=== PATIENT | female | born 1995 | race Caucasian/White ===

== ENCOUNTER 2018-06-26 23:45 | Emergency (ER) | payer MEDICAID, OTHER ==
[2018-06-27 00:12] VITALS: BP 112/65
--- NOTE | 2018-06-27 00:26 | EDM.PDOC ---
ED HPI GENERAL MEDICAL PROBLEM - General Source of Information: Reports: Patient, EMS History Limitations: Reports: No Limitations <Javy Brooks - Last Filed: 06/27/18 06:56> <Javy Pena - Last Filed: 06/27/18 10:20> - General Chief Complaint: Behavioral/Psych Stated Complaint: [facility] Time Seen by Provider: 06/27/18 00:20 - History of Present Illness INITIAL COMMENTS - FREE TEXT/NARRATIVE: This is a 23-year-old female. The ambulance was called to her residence because her boyfriend stated that she had taken alprazolam and buspirone and hydrocodone multiple pills because she wanted to kill herself. The patient states that yesterday wanted to kill herself and she is tried to do this twice in the last 2 months by taking Xanax. She was never seen for these previous 2 attempts. Tonight she states that she took this medication K she was fighting with her boyfriend. She says she's been having suicidal thoughts and her parents were killed when she was 16 years old. She will not tell me what she was fighting about. She's never been in treatment for the suicidal ideation and attempts. She denies any recent illnesses no colds no coughs. She is also drunk about 11 pierced tonight. (Javy Brooks) - Related Data Allergies Allergy/AdvReac Type Severity Reaction Status Date / Time erythromycin base Allergy Vomiting Verified 12/31/14 10:04 SURGICAL SUPPLIES STERILIZER Home Meds: Home Meds PNV95/Ferrous Fumarate/FA [ Tablet] 1 tab PO DAILY 12/31/14 [History] Acetaminophen/HYDROcodone [[place] 325-5 MG] 1 tab PO Q6H PRN #7 tablet 06/11/18 [ Rx] Divalproex Sodium [Depakote] 250 mg PO BID 06/11/18 [History] Past Medical History Psychiatric History: Reports: Bipolar - Past Surgical History HEENT Surgical History: Reports: Adenoidectomy, Tonsillectomy <Javy Brooks - Last Filed: 06/27/18 06:56> Social & Family History - Tobacco Use Smoking Status *Q: Never Smoker - Caffeine Use Caffeine Use: Reports: Coffee - Recreational Drug Use Recreational Drug Use: No <Javy Brooks - Last Filed: 06/27/18 06:56> ED ROS GENERAL - Review of Systems Review Of Systems: See Below Constitutional: Denies: Fever, Chills HEENT: Reports: No Symptoms Respiratory: Denies: Shortness of Breath Cardiovascular: Denies: Chest Pain Endocrine: Reports: No Symptoms GI/Abdominal: Reports: Nausea. Denies: Abdominal Pain, Diarrhea, Vomiting : Reports: No Symptoms Musculoskeletal: Reports: No Symptoms Skin: Reports: No Symptoms Neurological: Reports: Confusion Psychiatric: Reports: Depression, Suicidal Ideation Hematologic/Lymphatic: Reports: No Symptoms <Javy Brooks - Last Filed: 06/27/18 06:56> - Physical Exam Exam: See Below Exam Limited By: No Limitations General Appearance: Alert, WD/WN, No Apparent Distress, Lethargic. No: Obtunded Eye Exam: Bilateral Eye: Abnormal Pupil (Sluggish to react bilaterally but equal ), Normal Inspection Ears: Normal External Exam, Normal Canal, Normal TMs Nose: Normal Inspection Throat/Mouth: Normal Inspection, Normal Lips, No Airway Compromise, Other ( Slurred speech but understandable) Head Exam: Normocephalic Neck: Supple Respiratory/Chest: No Respiratory Distress, Lungs Clear, Normal Breath Sounds Cardiovascular: Regular Rate, Rhythm, No Murmur GI/Abdominal: Soft, Non-Tender Neuro Exam (Abbreviated): Alert, No Motor/Sensory Deficits, Confused, Slow to Respond. No: Unresponsive Back Exam: Full Range of Motion Extremities: Normal Inspection, Normal Range of Motion Psychiatric: Depressed Mood, Flat Affect, Tearful Skin Exam: Warm, Dry <Javy Brooks - Last Filed: 06/27/18 06:56> EKG INTERPRETATION EKG Date: 06/26/18 Time: 23:56 <Javy Brooks - Last Filed: 06/27/18 06:56> <Javy Pena - Last Filed: 06/27/18 10:20> EKG Interpretation Comments: Normal sinus rhythm rate of 82, a wavering baseline due to patient movement, no acute ST or T-wave changes, no acute ischemia noted. (Javy Brooks) Course <Javy Brooks - Last Filed: 06/27/18 06:56> <Javy Pena - Last Filed: 06/27/18 10:20> - Vital Signs Last Recorded V/S: Last Vital Signs Temp 98.2 F 06/27/18 00:09 Pulse 99 06/27/18 00:09 Resp 19 06/27/18 00:09 BP 112/65 06/27/18 00:09 Pulse Ox 96 06/27/18 00:09 - Orders/Labs/Meds Orders: Active Orders 24 hr Category Date Time Status EKG 12 Lead [EKG Documentation Completion] [RC] STAT Care 06/26/18 23:49 Active DRUG SCREEN, URINE [URCHEM] Stat Lab 06/27/18 00:18 Ordered DRUG SCREEN, URINE [URCHEM] Stat Lab 06/27/18 06:40 Ordered Labs: Laboratory Tests 06/26/18 06/26/18 06/26/18 Range/Units 23:50 23:50 23:50 WBC 6.30 (3.98-10.04) K/mm3 RBC 3.96 L (3.98-5.22) M/mm3 Hgb 12.2 (11.2-15.7) gm/L Hct 37.2 (34.1-44.9) % MCV 93.9 (79.4-94.8) fl MCH 30.8 (25.6-32.2) pg MCHC 32.8 (32.2-35.5) g/dl RDW Std Deviation 43.4 (36.4-46.3) fL Plt Count 235 (182-369) K/mm3 MPV 10.9 (9.4-12.3) fl Neut % (Auto) 43.8 (34.0-71.1) % Lymph % (Auto) 45.4 (19.3-51.7) % Donley % (Auto) 7.8 (4.7-12.5) % Eos % (Auto) 2.2 (0.7-5.8) Baso % (Auto) 0.6 (0.1-1.2) % Neut # (Auto) 2.76 (1.56-6.13) K/mm3 Lymph # (Auto) 2.86 (1.18-3.74) K/mm3 Donley # (Auto) 0.49 H (0.24-0.36) K/mm3 Eos # (Auto) 0.14 (0.04-0.36) K/mm3 Baso # (Auto) 0.04 (0.01-0.08) K/mm3 Sodium 140 (136-145) mEq/L Potassium 3.4 L (3.5-5.1) mEq/L Chloride 105 (98-107) mEq/L Carbon Dioxide 20 L (21-32) mEq/L Anion Gap 18.4 H (5-15) BUN 13 (7-18) mg/dL Creatinine 1.0 (0.55-1.02) mg/dL Est Cr Clr Drug Dosing 85.09 mL/min Estimated GFR (MDRD) > 60 (>60) mL/min BUN/Creatinine Ratio 13.0 L (14-18) Glucose 92 (74-106) mg/dL Calcium 8.1 L (8.5-10.1) mg/dL Total Bilirubin 0.2 (0.2-1.0) mg/dL AST 25 (15-37) U/L ALT 28 (14-59) U/L Alkaline Phosphatase 43 L (46-116) U/L Total Protein 7.3 (6.4-8.2) g/dl Albumin 3.4 (3.4-5.0) g/dl Globulin 3.9 gm/dL Albumin/Globulin Ratio 0.9 L (1-2) HCG, Qual Negative (NEGATIVE) Urine Color (Yellow) Urine Appearance (Clear) Urine pH (5.0-8.0) Ur Specific [place] (1.005-1.030) Urine Protein (Negative) Urine Glucose (UA) (Negative) Urine Ketones (Negative) Urine Occult Blood (Negative) Urine Nitrite (Negative) Urine Bilirubin (Negative) Urine Urobilinogen (0.2-1.0) Ur Leukocyte Esterase (Negative) Urine RBC (0-5) /hpf Urine WBC (0-5) /hpf Ur Epithelial Cells (0-5) /hpf Urine Bacteria (FEW) /hpf Urine Mucus (FEW) /hpf Salicylates (2.8-20) mg/dL Urine Opiates Screen (NEGATIVE) Ur Buprenorphine Scrn (NEGATIVE) Ur Oxycodone Screen (NEGATIVE) Urine Methadone Screen (NEGATIVE) Ur Propoxyphene Screen (NEGATIVE) Acetaminophen 0 L (10-30) ug/mL Ur Barbiturates Screen (NEGATIVE) Valproic Acid (50.0-100.0) ug/mL Ur Tricyclics Screen (NEGATIVE) Ur Phencyclidine Scrn (NEGATIVE) Ur Amphetamine Screen (NEGATIVE) U Methamphetamines Scrn (NEGATIVE) U Benzodiazepines Scrn (NEGATIVE) U Cocaine Metab Screen (NEGATIVE) U Marijuana (THC) Screen (NEGATIVE) Ethyl Alcohol 0.12 (0.00) gm% 06/26/18 06/26/18 06/26/18 Range/Units 23:50 23:50 23:53 WBC (3.98-10.04) K/mm3 RBC (3.98-5.22) M/mm3 Hgb (11.2-15.7) gm/L Hct (34.1-44.9) % MCV (79.4-94.8) fl MCH (25.6-32.2) pg MCHC (32.2-35.5) g/dl RDW Std Deviation (36.4-46.3) fL Plt Count (182-369) K/mm3 MPV (9.4-12.3) fl Neut % (Auto) (34.0-71.1) % Lymph % (Auto) (19.3-51.7) % Donley % (Auto) (4.7-12.5) % Eos % (Auto) (0.7-5.8) Baso % (Auto) (0.1-1.2) % Neut # (Auto) (1.56-6.13) K/mm3 Lymph # (Auto) (1.18-3.74) K/mm3 Donley # (Auto) (0.24-0.36) K/mm3 Eos # (Auto) (0.04-0.36) K/mm3 Baso # (Auto) (0.01-0.08) K/mm3 Sodium (136-145) mEq/L Potassium (3.5-5.1) mEq/L Chloride (98-107) mEq/L Carbon Dioxide (21-32) mEq/L Anion Gap (5-15) BUN (7-18) mg/dL Creatinine (0.55-1.02) mg/dL Est Cr Clr Drug Dosing mL/min Estimated GFR (MDRD) (>60) mL/min BUN/Creatinine Ratio (14-18) Glucose (74-106) mg/dL Calcium (8.5-10.1) mg/dL Total Bilirubin (0.2-1.0) mg/dL AST (15-37) U/L ALT (14-59) U/L Alkaline Phosphatase (46-116) U/L Total Protein (6.4-8.2) g/dl Albumin (3.4-5.0) g/dl Globulin gm/dL Albumin/Globulin Ratio (1-2) HCG, Qual (NEGATIVE) Urine Color (Yellow) Urine Appearance (Clear) Urine pH (5.0-8.0) Ur Specific [place] (1.005-1.030) Urine Protein (Negative) Urine Glucose (UA) (Negative) Urine Ketones (Negative) Urine Occult Blood (Negative) Urine Nitrite (Negative) Urine Bilirubin (Negative) Urine Urobilinogen (0.2-1.0) Ur Leukocyte Esterase (Negative) Urine RBC (0-5) /hpf Urine WBC (0-5) /hpf Ur Epithelial Cells (0-5) /hpf Urine Bacteria (FEW) /hpf Urine Mucus (FEW) /hpf Salicylates 1.4 L (2.8-20) mg/dL Urine Opiates Screen (NEGATIVE) Ur Buprenorphine Scrn (NEGATIVE) Ur Oxycodone Screen (NEGATIVE) Urine Methadone Screen (NEGATIVE) Ur Propoxyphene Screen (NEGATIVE) Acetaminophen Cancelled (10-30) ug/mL Ur Barbiturates Screen (NEGATIVE) Valproic Acid < 3.0 L (50.0-100.0) ug/mL Ur Tricyclics Screen (NEGATIVE) Ur Phencyclidine Scrn (NEGATIVE) Ur Amphetamine Screen (NEGATIVE) U Methamphetamines Scrn (NEGATIVE) U Benzodiazepines Scrn (NEGATIVE) U Cocaine Metab Screen (NEGATIVE) U Marijuana (THC) Screen (NEGATIVE) Ethyl Alcohol (0.00) gm% 06/27/18 06/27/18 06/27/18 Range/Units 00:18 00:18 05:36 WBC (3.98-10.04) K/mm3 RBC (3.98-5.22) M/mm3 Hgb (11.2-15.7) gm/L Hct (34.1-44.9) % MCV (79.4-94.8) fl MCH (25.6-32.2) pg MCHC (32.2-35.5) g/dl RDW Std Deviation (36.4-46.3) fL Plt Count (182-369) K/mm3 MPV (9.4-12.3) fl Neut % (Auto) (34.0-71.1) % Lymph % (Auto) (19.3-51.7) % Donley % (Auto) (4.7-12.5) % Eos % (Auto) (0.7-5.8) Baso % (Auto) (0.1-1.2) % Neut # (Auto) (1.56-6.13) K/mm3 Lymph # (Auto) (1.18-3.74) K/mm3 Donley # (Auto) (0.24-0.36) K/mm3 Eos # (Auto) (0.04-0.36) K/mm3 Baso # (Auto) (0.01-0.08) K/mm3 Sodium (136-145) mEq/L Potassium (3.5-5.1) mEq/L Chloride (98-107) mEq/L Carbon Dioxide (21-32) mEq/L Anion Gap (5-15) BUN (7-18) mg/dL Creatinine (0.55-1.02) mg/dL Est Cr Clr Drug Dosing mL/min Estimated GFR (MDRD) (>60) mL/min BUN/Creatinine Ratio (14-18) Glucose (74-106) mg/dL Calcium (8.5-10.1) mg/dL Total Bilirubin (0.2-1.0) mg/dL AST (15-37) U/L ALT (14-59) U/L Alkaline Phosphatase (46-116) U/L Total Protein (6.4-8.2) g/dl Albumin (3.4-5.0) g/dl Globulin gm/dL Albumin/Globulin Ratio (1-2) HCG, Qual (NEGATIVE) Urine Color Light yellow (Yellow) Urine Appearance Clear (Clear) Urine pH 6.0 (5.0-8.0) Ur Specific [place] 1.010 (1.005-1.030) Urine Protein Negative (Negative) Urine Glucose (UA) Negative (Negative) Urine Ketones Negative (Negative) Urine Occult Blood Negative (Negative) Urine Nitrite Negative (Negative) Urine Bilirubin Negative (Negative) Urine Urobilinogen 0.2 (0.2-1.0) Ur Leukocyte Esterase Negative (Negative) Urine RBC Not seen (0-5) /hpf Urine WBC Not seen (0-5) /hpf Ur Epithelial Cells Not seen (0-5) /hpf Urine Bacteria Not seen (FEW) /hpf Urine Mucus Not seen (FEW) /hpf Salicylates (2.8-20) mg/dL Urine Opiates Screen Negative (NEGATIVE) Ur Buprenorphine Scrn Negative (NEGATIVE) Ur Oxycodone Screen Negative (NEGATIVE) Urine Methadone Screen Negative (NEGATIVE) Ur Propoxyphene Screen Negative (NEGATIVE) Acetaminophen 0 L (10-30) ug/mL Ur Barbiturates Screen Negative (NEGATIVE) Valproic Acid (50.0-100.0) ug/mL Ur Tricyclics Screen Negative (NEGATIVE) Ur Phencyclidine Scrn Negative (NEGATIVE) Ur Amphetamine Screen Negative (NEGATIVE) U Methamphetamines Scrn Negative (NEGATIVE) U Benzodiazepines Scrn Negative (NEGATIVE) U Cocaine Metab Screen Negative (NEGATIVE) U Marijuana (THC) Screen Negative (NEGATIVE) Ethyl Alcohol (0.00) gm% 06/27/18 Range/Units 05:36 WBC (3.98-10.04) K/mm3 RBC (3.98-5.22) M/mm3 Hgb (11.2-15.7) gm/L Hct (34.1-44.9) % MCV (79.4-94.8) fl MCH (25.6-32.2) pg MCHC (32.2-35.5) g/dl RDW Std Deviation (36.4-46.3) fL Plt Count (182-369) K/mm3 MPV (9.4-12.3) fl Neut % (Auto) (34.0-71.1) % Lymph % (Auto) (19.3-51.7) % [place]ley % (Auto) (4.7-12.5) % Eos % (Auto) (0.7-5.8) Baso % (Auto) (0.1-1.2) % Neut # (Auto) (1.56-6.13) K/mm3 Lymph # (Auto) (1.18-3.74) K/mm3 [place] # (Auto) (0.24-0.36) K/mm3 Eos # (Auto) (0.04-0.36) K/mm3 Baso # (Auto) (0.01-0.08) K/mm3 Sodium (136-145) mEq/L Potassium (3.5-5.1) mEq/L Chloride (98-107) mEq/L Carbon Dioxide (21-32) mEq/L Anion Gap (5-15) BUN (7-18) mg/dL Creatinine (0.55-1.02) mg/dL Est Cr Clr Drug Dosing mL/min Estimated GFR (MDRD) (>60) mL/min BUN/Creatinine Ratio (14-18) Glucose (74-106) mg/dL Calcium (8.5-10.1) mg/dL Total Bilirubin (0.2-1.0) mg/dL AST (15-37) U/L ALT (14-59) U/L Alkaline Phosphatase (46-116) U/L Total Protein (6.4-8.2) g/dl Albumin (3.4-5.0) g/dl Globulin gm/dL Albumin/Globulin Ratio (1-2) HCG, Qual (NEGATIVE) Urine Color (Yellow) Urine Appearance (Clear) Urine pH (5.0-8.0) Ur Specific [place] (1.005-1.030) Urine Protein (Negative) Urine Glucose (UA) (Negative) Urine Ketones (Negative) Urine Occult Blood (Negative) Urine Nitrite (Negative) Urine Bilirubin (Negative) Urine Urobilinogen (0.2-1.0) Ur Leukocyte Esterase (Negative) Urine RBC (0-5) /hpf Urine WBC (0-5) /hpf Ur Epithelial Cells (0-5) /hpf Urine Bacteria (FEW) /hpf Urine Mucus (FEW) /hpf Salicylates (2.8-20) mg/dL Urine Opiates Screen (NEGATIVE) Ur Buprenorphine Scrn (NEGATIVE) Ur Oxycodone Screen (NEGATIVE) Urine Methadone Screen (NEGATIVE) Ur Propoxyphene Screen (NEGATIVE) Acetaminophen (10-30) ug/mL Ur Barbiturates Screen (NEGATIVE) Valproic Acid (50.0-100.0) ug/mL Ur Tricyclics Screen (NEGATIVE) Ur Phencyclidine Scrn (NEGATIVE) Ur Amphetamine Screen (NEGATIVE) U Methamphetamines Scrn (NEGATIVE) U Benzodiazepines Scrn (NEGATIVE) U Cocaine Metab Screen (NEGATIVE) U Marijuana (THC) Screen (NEGATIVE) Ethyl Alcohol 0.01 (0.00) gm% - Re-Assessments/Exams Free Text/Narrative Re-Assessment/Exam: 06/27/18 03:20 We have been awakening her about every 15 minutes as she is sleeping to make sure she is still responsive. Thus far she has remained responsive to the disturbance. We will continue to monitor until she is more coherent to determine if she is still suicidal and if she needs to be admitted for further psychiatric therapy. 06/27/18 06:39 Patient is awake and verbal though she still is lethargic. She has been able to get up and go the bathroom though she is slightly unsteady on her feet. When I talk to her now she states she is not suicidal and she wants to go home to her kids and her boyfriend. We'll attempt to find the boyfriend to come and get her. 06/27/18 06:56 Regarding a repeat an alcohol level on her and a urine drug screen to see if she really didn't take any alprazolam. Both her Tylenol levels were negative suggesting she did not take any hydrocodone with Tylenol. Once we can get hold of her boyfriend we will have him come and get her and take her home. She continues to state she is not suicidal and wants to go home to her kids. (Javy Brooks) 06/27/18 10:20 Her repeat blood alcohol is 0.01. She has slept most of the morning and she is ready to go. I will discharge her home. (Javy Pena) Departure - Departure Condition: Fair - Discharge Information *PRESCRIPTION DRUG MONITORING PROGRAM REVIEWED*: Not Applicable *COPY OF PRESCRIPTION DRUG MONITORING REPORT IN PATIENT CAROLIN: Not Applicable <Javy Brooks - Last Filed: 06/27/18 06:56> - Departure Time of Disposition: 10:20 <Javy Pena - Last Filed: 06/27/18 10:20> - Departure Disposition: Home, Self-Care 01 Clinical Impression: Suicidal ideation Acute alcohol intoxication Qualifiers: Complication of substance-induced condition: with unspecified complication Qualified Code(s): F10.929 - Alcohol use, unspecified with intoxication, unspecified Multiple drug overdose Qualifiers: Encounter type: initial encounter Injury intent: undetermined intent Qualified Code(s): T50.904A - Poisoning by unspecified drugs, medicaments and biological substances, undetermined, initial encounter Depression Qualifiers: Depression Type: reactive depression Qualified Code(s): F32.9 - Major depressive disorder, single episode, unspecified - Discharge Information Instructions: Living With Depression, Alcohol Intoxication, [id number], Drug Overdose Referrals: PCP,Unknown [Primary Care Provider] - Forms: ED Department Discharge Additional Instructions: You need to follow-up with your family doctor regarding this visit to the emergency room, please do not drink any more because it puts you in a depressed mood and then you do crazy stuff, you need some counseling and I would suggest you call [facility], and arrange for counseling, they do have a walk-in clinic time Thursday morning at 8-10 AM and they will see you then and evaluate you, return to the ER as needed
[2018-06-27 00:37] LABS: ACETAMINOPHEN 0 ug/mL (10-30)
== END 2018-06-27 10:55 | disposition home or self-care (01) ==
LOC: JD.ED 23:45
DX: T50.902A Poisoning by unspecified drugs, medicaments and biological substances, intentional self-harm, initial encounter (principal); F32.9 Major depressive disorder, single episode, unspecified; F10.129 Alcohol abuse with intoxication, unspecified; Y90.0 Blood alcohol level of less than 20 mg/100 ml
CPT/HCPCS: 36415; 80053; 80164; 80306; 81001; 84703; 85025; 93005; 99285; G0480

== ENCOUNTER 2019-01-25 07:58 | Emergency (ER) | payer BC, MEDICAID ==
[2019-01-25] MEDS ORDERED: HYDROmorphone 1 MG/ML Syringe IVPUSH ONE (08:39)
[2019-01-25] MEDS ORDERED: Ondansetron 4 MG/2 ML SDV IVPUSH ONE (08:40)
[2019-01-25] MEDS ORDERED: Dextrose 5%-0.9% NaCl 1,000 ML IV SCH (08:45)
--- NOTE | 2019-01-25 08:45 | EDM.PDOC ---
ED HPI GENERAL MEDICAL PROBLEM - General Chief Complaint: CLEANING SPECIALIST Problem Stated Complaint: 8 WEEKS PREG AND BLEEDING Time Seen by Provider: 01/25/19 08:35 Source of Information: Reports: Patient History Limitations: Reports: No Limitations - History of Present Illness INITIAL COMMENTS - FREE TEXT/NARRATIVE: 23-year-old female presents to the ED for evaluation of acute onset of spotting per vagina associate with mild diffuse lower abdominal menstrual cramping pain. Started when she got up for work this morning about 0545 hrs. She believes her last menstrual period was around November 25, 2018. This would make her 3 para 2 with 2 previous normal vaginal deliveries. Feels with breast tenderness and intermittent nausea. Had no spotting per vagina earlier in the . Onset: Today Onset Date: 01/25/19 Onset Time: 05:45 Duration: Hour(s): Location: Reports: Other Quality: Reports: Other (Spotting per vagina) Severity: Moderate (menstrual cramping pain suprapubically7 out of 10) Improves with: Reports: None Worsens with: Reports: None Context: Denies: Activity, Exercise, Lifting, Sick Contact, Trauma, Other Associated Symptoms: Reports: Other (Lower abdominal cramping pain with spotting per vagina) Treatments LEAD ACCOUNTANT: Reports: Other (see below) (None.) Lower Pelvic Pain Score (Numeric/FACES): 5 - Related Data Allergies Allergy/AdvReac Type Severity Reaction Status Date / Time erythromycin base Allergy Vomiting Verified 01/25/19 08:08 Home Meds: Home Meds Thl917/FA/Omega3/Dha/Fish Oil [ Gummies] 1 cap PO DAILY 01/25/19 [ History] oxyCODONE HCl/Acetaminophen [Percocet 5-325 mg Tablet] 1 - 2 each PO Q4H PRN #8 tablet 01/25/19 [Rx] Past Medical History 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 - Infectious Disease History Infectious Disease History: Reports: Chicken Pox - Past Surgical History HEENT Surgical History: Reports: Adenoidectomy, Tonsillectomy Social & Family History - Tobacco Use Smoking Status *Q: Never Smoker Second Hand Smoke Exposure: No - Caffeine Use Caffeine Use: Reports: None - Recreational Drug Use Recreational Drug Use: No - Living Situation & Occupation Living situation: Reports: Occupation: Employed ED ROS GENERAL - Review of Systems Review Of Systems: See Below Constitutional: Reports: Malaise, Fatigue. Denies: Fever, Chills HEENT: Reports: No Symptoms Respiratory: Reports: No Symptoms Cardiovascular: Reports: No Symptoms Endocrine: Reports: No Symptoms GI/Abdominal: Reports: No Symptoms, Other (Diffuse suprapubic lower abdominal pain component with menstrual cramps.) : Reports: Other Musculoskeletal: Reports: No Symptoms Skin: Reports: No Symptoms Neurological: Reports: No Symptoms Psychiatric: Reports: No Symptoms ED EXAM - Physical Exam Exam: See Below Exam Limited By: No Limitations General Appearance: Alert, WD/WN, Anxious, Mild Distress Eye Exam: Bilateral Eye: Normal Inspection Respiratory/Chest: No Respiratory Distress, Lungs Clear, Normal Breath Sounds, Chest Non-Tender Cardiovascular: Normal Peripheral Pulses, Regular Rate, Rhythm, No Edema, No Gallop, No Murmur, No Rub GI/Abdominal Exam: Normal Bowel Sounds, Soft, Non-Tender, No Organomegaly, No Abnormal Bruit, No Mass. No: Guarding, Rigid, Rebound Back Exam: Normal Inspection, Full Range of Motion. No: CVA Tenderness (L), CVA Tenderness (R) Extremities: Normal Inspection, Normal Range of Motion, Non-Tender, No Pedal Edema Neurological: Alert, Oriented, CN II-XII Intact, Normal Cognition Psychiatric: Anxious Skin Exam: Warm, Dry, Intact, Normal Color, No Rash Course - Vital Signs Last Recorded V/S: Last Vital Signs Temp 36.7 C 01/25/19 08:05 Pulse 54 L 01/25/19 09:43 Resp 16 01/25/19 09:43 BP 103/46 L 01/25/19 09:43 Pulse Ox 99 01/25/19 09:43 - Orders/Labs/Meds Orders: Active Orders 24 hr Category Date Time Status OB Transvaginal [US] Stat Exams 01/25/19 08:44 Taken PATIENT RETYPE [BBK] Routine Lab 01/25/19 09:59 Ordered TYPE AND SCREEN [BBK] Stat Lab 01/25/19 08:50 Results Dextrose 5%-0.9% NaCl [Dextrose 5%-Normal Saline] 1,000 Med 01/25/19 08:45 Active ml IV ASDIRECTED Medication Orders Dextrose/Sodium Chloride (Dextrose 5%-Normal Saline) 1,000 mls @ 150 mls/hr IV ASDIRECTED HERSON Last Admin: 01/25/19 09:40 Dose: 150 mls/hr Labs: Laboratory Tests 01/25/19 01/25/19 01/25/19 Range/Units 08:50 08:50 09:05 HCG, Quant 425891.0 mIU/mL Urine Color Yellow (Yellow) Urine Appearance Clear (Clear) Urine pH 7.0 (5.0-8.0) Ur Specific [place] 1.025 (1.005-1.030) Urine Protein Trace H (Negative) Urine Glucose (UA) Negative (Negative) Urine Ketones Negative (Negative) Urine Occult Blood 2+ H (Negative) Urine Nitrite Negative (Negative) Urine Bilirubin Negative (Negative) Urine Urobilinogen 1.0 (0.2-1.0) Ur Leukocyte Esterase Negative (Negative) Urine RBC 10-20 H (0-5) /hpf Urine WBC 0-5 (0-5) /hpf Ur Epithelial Cells 0-5 (0-5) /hpf Urine Bacteria Few (FEW) /hpf Urine Mucus Moderate H (FEW) /hpf Blood Type A POSITIVE Meds: Medications Generic Name Dose Route Start Last Admin Trade Name Freq PRN Reason Stop Dose Admin Dextrose/Sodium Chloride 1,000 mls @ 150 mls/hr 01/25/19 08:45 01/25/19 09:40 Dextrose 5%-Normal Saline IV 150 mls/hr ASDIRECTED HERSON Administration Discontinued Medications Generic Name Dose Route Start Last Admin Trade Name Freq PRN Reason Stop Dose Admin Hydromorphone HCl 0.5 mg 01/25/19 08:39 01/25/19 08:59 Dilaudid IVPUSH 01/25/19 08:40 0.5 mg ONETIME ONE Administration Ondansetron HCl 4 mg 01/25/19 08:40 01/25/19 08:57 Zofran IVPUSH 01/25/19 08:41 4 mg ONETIME ONE Administration - Radiology Interpretation Free Text/Narrative:: 23-year-old female who is 3 para 2 presents to the ED with spotting and bleeding per vagina that started about 0545 hrs. this morning after she got up from sleep. She states she's had continuous spotting with no clots. Associated diffuse lower abdominal cramping pain. Plus her last period was November 25, 2018. This will make her about 8 weeks gestation. Benign abdominal examination. Plan routine labs including type and screen. She knows she is Rh+ with no previous need for injections . Quantitative beta-hCG to be done. Transvaginal ultrasound ordered to check on viability. - Re-Assessments/Exams Free Text/Narrative Re-Assessment/Exam: 01/25/19 09:45 Urinalysis shows trace of protein to possible call blood 10-20 RBCs per high-power field. Moderate mucus but few bacteria 01/25/19 10:06 Quantitative beta-hCG is 119,886. Blood type is A+. Antibody screen is negative. Has vaginal ultrasound has been completed. It confirms an 8 week 2 day . Heartbeat was 176 bpm. Very small subchorionic hemorrhage inferior to the placenta. Patient will be off work for the rest the week. She will be primarily bed rest for the next 3 days. She will return to medical care if she starts to flow heavily per vagina soaking a pad per hour for 2 consecutive hours. I will send her home with a few Percocet tablets to take for cramping if needed. Departure - Departure Time of Disposition: 10:36 Disposition: Home, Self-Care 01 Condition: Fair Clinical Impression: Subchorionic hemorrhage in first trimester Qualifiers: Fetus number: single or unspecified fetus Qualified Code(s): O41.8X10 - Other specified disorders of amniotic fluid and membranes, first trimester, not applicable or unspecified; O46.8X1 - Other antepartum hemorrhage, first trimester - Discharge Information *PRESCRIPTION DRUG MONITORING PROGRAM REVIEWED*: Not Applicable *COPY OF PRESCRIPTION DRUG MONITORING REPORT IN PATIENT CAROLIN: Not Applicable Prescriptions: oxyCODONE HCl/Acetaminophen [Percocet 5-325 mg Tablet] 1 - 2 each PO Q4H PRN #8 tablet PRN Reason: pain relief. Instructions: Vaginal Bleeding During , First Trimester Referrals: Shagufta Polo MD [Primary Care Provider] - Forms: ED Department Discharge, ED Return to Work/School Form Additional Instructions: Evaluation in the emergency room this morning due to sudden onset of spotting per vagina this morning associate with lower abdominal menstrual cramping pain. Known to be approximately 8 weeks gestation by dates. Ultrasound completed reveals a adamson that measures with 8 weeks and 2 days. This would make her due date around August 31, 2019. Hormone of is in the normal range for 8 week . Her son did demonstrate a small subchorionic hemorrhage which appears to be the source of her bleeding. This means there is some bleeding behind the placenta in the wall of the uterus. Nicolette is therefore resting at home with lying around a good portion of the next 3 days until the bleeding stops. No lifting more than 5 pounds for the next 3 days. No vigorous exercise program or vacuuming housework etc. Also recommended no sexual intercourse for one week. You would need to return to medical care if you start to flow heavily per vagina soaking a pad per hour for 2 consecutive hours. I will send home a few tablets of Percocet 5/325 mg strength to be taken 1 every 4-6 hours if needed for relief of abdominal cramping pain. Follow-up with Dr. Ruiz if any further problems occur - My Orders Last 24 Hours: My Active Orders 01/25/19 08:44 OB Transvaginal [US] Stat 01/25/19 08:45 Dextrose 5%-0.9% NaCl [Dextrose 5%-Normal Saline] 1,000 ml IV ASDIRECTED 01/25/19 08:50 TYPE AND SCREEN [BBK] Stat 01/25/19 09:59 PATIENT RETYPE [BBK] Routine - Assessment/Plan Last 24 Hours: My Active Orders 01/25/19 08:44 OB Transvaginal [US] Stat 01/25/19 08:45 Dextrose 5%-0.9% NaCl [Dextrose 5%-Normal Saline] 1,000 ml IV ASDIRECTED 01/25/19 08:50 TYPE AND SCREEN [BBK] Stat 01/25/19 09:59 PATIENT RETYPE [BBK] Routine
[2019-01-25 10:38] VITALS: BP 107/58
--- NOTE | 2019-01-25 10:42 | US ---
First trimester obstetrical ultrasound: Multiple real-time images were obtained transvaginally and transabdominally. Comparison: No previous ultrasound study for current . Dates: LMP: LMP given as 11/25/18, SEJAL 09/01/19, gestational age 8 weeks 5 days Current ultrasound: SEJAL 09/04/19, gestational age 8 weeks 2 days Single intrauterine gestation is seen. Embryo and yolk sac are identified. Subchorionic hemorrhage is seen. Clot extends inferior to the gestational sac. Two questionable uterine fibroids are seen measuring 3.3 cm which is subserosal in location as well as fibroid within the uterine muscle measuring 2.4 cm. Maternal ovaries appear within normal limits. Incidental nabothian cysts are present. Measurements: Imbery-rump length: 17.33 cm - 8 weeks 2 days Heart rate: 173 bpm Impression: 1. Single intrauterine gestation. Dates as noted above. 2. Subchorionic hemorrhage with clot extending inferior to the gestational sac. 3. Two questionable uterine fibroids. Incidental nabothian cysts. 4. Normal heart activity is seen at this time. Diagnostic code #3
== END 2019-01-25 11:15 | disposition home or self-care (01) ==
LOC: JD.ED 07:58
DX: O20.9 Hemorrhage in early pregnancy, unspecified (principal); Z88.1 Allergy status to other antibiotic agents; Z3A.08 8 weeks gestation of pregnancy
CPT/HCPCS: 36415; 76817; 81001; 84702; 86850; 86900; 86901; 96361; 96374; 96375; 99284; J1170; J2405; J7042

== ENCOUNTER 2019-02-25 21:48 | Emergency (ER) | payer BC ==
[2019-02-25 21:59] VITALS: BP 120/62
--- NOTE | 2019-02-25 22:15 | EDM.PDOC ---
ED HPI GENERAL MEDICAL PROBLEM - General Chief Complaint: RN PROCEDURE Problem Stated Complaint: POSS MISCARRAGE 13 WKS PG Time Seen by Provider: 02/25/19 21:56 Source of Information: Reports: Patient, Old Records, RN Notes Reviewed History Limitations: Reports: No Limitations - History of Present Illness INITIAL COMMENTS - FREE TEXT/NARRATIVE: Patient is a 23-year-old female who presents to the ED today for the evaluation of bleeding with . Patient is a , history of 2 normal vaginal deliveries, one miscarriage in 2013. The patient states that she is around 13 weeks , and noticed some vaginal spotting this morning. She notes that throughout the day of this spotting less than, and however tonight the spotting worsened again. She states that the blood is really only present when she was to the bathroom and wipes. She does not note any gush of blood or any clots at this time. She notes some severe cramping, with same characteristics as menstrual cramps. She states that the cramping is very similar to the cramping she experienced in 2013 when she had her miscarriage. She is a patient of Dr. Polo'nancy and has had her initial OB visit and this went well. Per her history and records her blood type is a positive with no antibodies. Lower Abdominal Pain Score (Numeric/FACES): 7 - Related Data Allergies Allergy/AdvReac Type Severity Reaction Status Date / Time erythromycin base Allergy Vomiting Verified 01/25/19 08:08 Home Meds: Home Meds Docosahexanoic Acid [ Dha] 200 mg PO DAILY 02/25/19 [History] Past Medical History RN PROCEDURE History: Reports: Musculoskeletal History: Reports: Fracture Psychiatric History: Reports: Anxiety, Depression, Other (See Below) Other Psychiatric History: mood disorder. - Infectious Disease History Infectious Disease History: Reports: Chicken Pox - Past Surgical History HEENT Surgical History: Reports: Adenoidectomy, Tonsillectomy Social & Family History - Tobacco Use Smoking Status *Q: Former Smoker Used Tobacco, but Quit: Yes Month/Year Tobacco Last Used: 12/2018 Second Hand Smoke Exposure: Yes - Caffeine Use Caffeine Use: Reports: None - Recreational Drug Use Recreational Drug Use: No - Living Situation & Occupation Living situation: Reports: Occupation: Employed ED ROS GENERAL - Review of Systems Review Of Systems: See Below Constitutional: Reports: No Symptoms HEENT: Reports: No Symptoms Respiratory: Reports: No Symptoms Cardiovascular: Reports: No Symptoms Endocrine: Reports: No Symptoms GI/Abdominal: Reports: No Symptoms : Reports: Other (Vaginal spotting, pelvic cramping) Musculoskeletal: Reports: No Symptoms Skin: Reports: No Symptoms Neurological: Reports: No Symptoms Psychiatric: Reports: No Symptoms Hematologic/Lymphatic: Reports: No Symptoms Immunologic: Reports: No Symptoms ED EXAM - Physical Exam Exam: See Below Exam Limited By: No Limitations General Appearance: Alert, WD/WN, No Apparent Distress Eye Exam: Bilateral Eye: Normal Inspection Respiratory/Chest: No Respiratory Distress, Lungs Clear, Normal Breath Sounds, No Accessory Muscle Use, Chest Non-Tender Cardiovascular: Normal Peripheral Pulses, Regular Rate, Rhythm, No Murmur Heart Tones: Present Heart Tones per Min: 150 Movement: Not Appreciated Extremities: Normal Inspection, Normal Capillary Refill Neurological: Alert, Oriented, Normal Cognition, No Motor/Sensory Deficits Psychiatric: Normal Affect, Normal Mood Skin Exam: Warm, Dry, Intact, Normal Color, No Rash Course - Vital Signs Last Recorded V/S: Last Vital Signs Temp 98.1 F 02/25/19 21:56 Pulse 91 02/25/19 21:56 Resp 20 02/25/19 21:56 BP 120/62 02/25/19 21:56 Pulse Ox 99 02/25/19 21:56 - Orders/Labs/Meds Labs: Laboratory Tests 02/25/19 02/25/19 Range/Units 22:15 22:15 WBC 7.65 (3.98-10.04) K/mm3 RBC 3.74 L (3.98-5.22) M/mm3 Hgb 11.4 (11.2-15.7) gm/L Hct 34.5 (34.1-44.9) % MCV 92.2 (79.4-94.8) fl MCH 30.5 (25.6-32.2) pg MCHC 33.0 (32.2-35.5) g/dl RDW Std Deviation 43.0 (36.4-46.3) fL Plt Count 190 (182-369) K/mm3 MPV 10.7 (9.4-12.3) fl Neutrophils % (Manual) 57 (40-60) % Band Neutrophils % 0 (0-10) % Lymphocytes % (Manual) 34 (20-40) % Atypical Lymphs % 0 % Monocytes % (Manual) 6 (2-10) % Eosinophils % (Manual) 1 (0.7-5.8) % Basophils % (Manual) 2 H (0.1-1.2) Platelet Estimate Adequate Plt Morphology Comment Normal RBC Morph Comment Normal HCG, Quant 15955.0 mIU/mL - Re-Assessments/Exams Free Text/Narrative Re-Assessment/Exam: 02/25/19 22:22 Patient presents to the ED for the evaluation of vaginal bleeding with and a possible miscarriage. I have ordered a CBC, hCG level, and a first trimester OB ultrasound. Again her blood type is A+ with no antibodies as per her history and review of old records. I did not feel it pertinent to redraw her for a type and screen at this time even though I am getting blood to evaluate her hemoglobin level, and hCG level. heartbeat was appreciated at 150 bpm by Doppler ultrasound. It is doubtful at this time that she is having a miscarriage. 02/25/19 23:29 The patient's laboratory values have returned and are essentially within normal limits for her gestational age. I am awaiting US at this time, she is finishing up her US, and we should have a report shortly. 02/26/19 00:05 Ultrasound report is back and demonstrate an early live intrauterine with a sonographic gestational age of 12 weeks 5 days with the expected due date of 09/05/2019. The radiologist also states that when compared to the prior study dated on 01/25/2019 there has been excellent interval growth. This should be reassuring to the patient and I will relay this information to her with general recommendations and discharge her home. Departure - Departure Time of Disposition: 00:06 Disposition: Home, Self-Care 01 Condition: Fair Clinical Impression: Vaginal bleeding in patient at less than 20 weeks gestation - Discharge Information *PRESCRIPTION DRUG MONITORING PROGRAM REVIEWED*: No *COPY OF PRESCRIPTION DRUG MONITORING REPORT IN PATIENT CAROLIN: No Instructions: Vaginal Bleeding During , Second Trimester, [id number] Referrals: Shagufta Polo MD [Primary Care Provider] - Forms: ED Department Discharge Additional Instructions: You have been evaluated in the ED today for your vaginal bleeding during . Your ultrasound showed a healthy intrauterine , with a gestational age of 12 weeks 5 days. Your laboratory evaluation was unremarkable at this ED visit, everything was within normal limits. Please refrain from sexual intercourse over the weekend, and follow up with your OB doctor on Thursday for re-evaluation. You may take Tylenol as needed for pelvic cramping. Please return to the ED if your symptoms change or worsen.
--- NOTE | 2019-02-27 11:15 | US ---
Obstetrical ultrasound: Multiple real-time images were obtained transabdominally. Comparison: Previous obstetrical ultrasound of 01/25/19. Dates: LMP: LMP given as 11/25/18, SEJAL 09/01/19, gestational age 13 weeks 2 days Current ultrasound: SEJAL 09/02/19, gestational age 13 weeks 1 day Earliest ultrasound (01/25/19): SEJAL 09/04/19, gestational age 12 weeks 6 days Single intrauterine fetus is seen. Amniotic fluid volume is normal. No subchorionic hemorrhage is seen. Maternal ovaries are within normal limits. Measurements: [place]-rump length: 62.42 mm - 12 weeks 5 days BPD: 2.03 cm - 13 weeks 2 days Head circumference: 7.58 cm - 13 weeks 2 days Abdominal circumference: 6.40 cm - 13 weeks 1 day Femur length: 0.94 cm - 12 weeks 6 days Estimated weight: 67 g (0 lbs. 2 oz.), estimated weight at the 18th percentile Heart rate: 143 bpm Impression: 1. Single intrauterine fetus. Dates as noted above. 2. No discrete complicating process is seen at this time. Diagnostic code #1
== END 2019-02-26 00:15 | disposition home or self-care (01) ==
LOC: JD.ED 21:48
DX: O20.9 Hemorrhage in early pregnancy, unspecified (principal); Z3A.13 13 weeks gestation of pregnancy; Z87.891 Personal history of nicotine dependence; Z79.899 Other long term (current) drug therapy; Z88.1 Allergy status to other antibiotic agents
CPT/HCPCS: 36415; 76801; 76801-26; 84702; 85007; 85027; 99282; 99284-25

== ENCOUNTER 2019-09-01 05:31 | Inpatient (IN) | payer MEDICAID ==
[~2019-09-01 05:31] MED LIST: Bupivacaine 0.25% 10 ML SDV ONE; ePHEDrine/Normal Saline 25 MG/5 ML Syringe ONE
[2019-09-01] MEDS ORDERED: Ondansetron 4 MG/2 ML SDV IVPUSH PRN (07:39)
[2019-09-01] MEDS ORDERED: Sodium Chloride 0.9% 10 ML Syringe FLUSH PRN (07:39)
[2019-09-01] MEDS ORDERED: Nalbuphine 10 MG/1 ML Vial IVPUSH PRN (07:39)
[2019-09-01] MEDS ORDERED: Oxytocin/Lactated Ringers 10 UNIT/1,000 ML BAG IV SCH ×2 (07:45)
[2019-09-01] MEDS: Lactated Ringers 1,000 ML IV SCH ×4 (08:11→18:49)
[2019-09-01] MEDS ORDERED: diphenhydrAMINE 50 MG/ML SDV IVPUSH PRN (13:24)
[2019-09-01] MEDS ORDERED: ePHEDrine 50 MG/ML SDV IVPUSH PRN (13:24)
[2019-09-01] MEDS ORDERED: fentaNYL 100 MCG/2 ML SDV EPIDUR PRN (13:24)
[2019-09-01] MEDS ORDERED: fentaNYL/Bupivacaine in NS PF 2 MCG-0.125% 250 ML Premix EPIDUR PRN (13:24)
[2019-09-01] MEDS ORDERED: Oxytocin/Lactated Ringers 20 UNIT/1,000 ML BAG IV SCH (19:45)
--- NOTE | 2019-09-01 20:09 | PCM.LDHP ---
L&D History of Present Illness - General Date of Service: 09/01/19 Admit Problem/Dx: Patient Status Order with Admit Dx/Problem 09/01/19 07:40 Patient Status [ADT] Routine Admission Diagnosis/Problem Admission Diagnosis/Problem Source of Information: Patient History Limitations: Reports: No Limitations - History of Present Illness Introduction:: Patient is a 24 y/o at 40 0/7 wks who presents for elective IOL. Doing well today. No significant contractions. Good FM. 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: , Spontaneous : 4 Para: 2 LMP (Approximate): Musculoskeletal History: Reports: Fracture Psychiatric History: Reports: Anxiety, Bipolar, Depression - Infectious Disease History Infectious Disease History: Reports: Chicken Pox - Past Surgical History HEENT Surgical History: Reports: Adenoidectomy, Tonsillectomy Social & Family History - Family History Family Medical History: Noncontributory - Tobacco Use Smoking Status *Q: Former Smoker Years of Tobacco use: 2 Used Tobacco, but Quit: Yes Month/Year Tobacco Last Used: NOV 2018 Second Hand Smoke Exposure: No - Caffeine Use Caffeine Use: Reports: None - Alcohol Use Alcohol Use History: No - Recreational Drug Use Recreational Drug Use: No - Living Situation & Occupation Living situation: Reports: Occupation: Employed H&P Review of Systems - Review of Systems: Review Of Systems: See Below General: Reports: No Symptoms Pulmonary: Reports: No Symptoms Cardiovascular: Reports: No Symptoms Gastrointestinal: Reports: No Symptoms Genitourinary: Reports: No Symptoms Musculoskeletal: Reports: No Symptoms Psychiatric: Reports: No Symptoms Neurological: Reports: No Symptoms L&D Exam - Exam Exam: See Below - Vital Signs Vital Signs: Last Vital Signs Temp 37.3 C 09/01/19 07:32 Pulse 111 H 09/01/19 07:32 Resp 16 09/01/19 07:32 BP 105/73 09/01/19 07:32 Pulse Ox 100 09/01/19 07:32 Weight: 108.409 kg - OB Specific Contraction Intensity: Irritability Movement: Active Heart Tones: Present Heart Tones per Min: 140 Heart Rate (FHR) Variability: Moderate (6-25 bmp) Presentation: Vertex - Meza Score Meza Score Cervix Position: Midposition Meza Score Consistency: Medium Meza Score Effacement: 31-50% Meza Score Dilation: 1-2 cm Meza Score Infant's Station: -3 Meza Score Total: 4 - Exam General: Alert, Oriented, Cooperative Lungs: Clear to Auscultation, Normal Respiratory Effort Cardiovascular: Regular Rate, Regular Rhythm GI/Abdominal Exam: Soft, Non-Tender Genitourinary: Normal external exam Extremities: Normal Inspection Skin: Warm, Dry, Intact - Patient Data Lab Results Last 24 hrs: Laboratory Results - last 24 hr 09/01/19 Range/Units 07:58 WBC 12.66 H (3.98-10.04) K/mm3 RBC 3.74 L (3.98-5.22) M/mm3 Hgb 11.4 (11.2-15.7) gm/dl Hct 34.9 (34.1-44.9) % MCV 93.3 (79.4-94.8) fl MCH 30.5 (25.6-32.2) pg MCHC 32.7 (32.2-35.5) g/dl RDW Std Deviation 44.0 (36.4-46.3) fL Plt Count 180 L (182-369) K/mm3 MPV 11.2 (9.4-12.3) fl Neut % (Auto) 70.0 (34.0-71.1) % Lymph % (Auto) 18.5 L (19.3-51.7) % [place] % (Auto) 9.2 (4.7-12.5) % Eos % (Auto) 0.9 (0.7-5.8) Baso % (Auto) 0.2 (0.1-1.2) % Neut # (Auto) 8.86 H (1.56-6.13) K/mm3 Lymph # (Auto) 2.34 (1.18-3.74) K/mm3 [place] # (Auto) 1.17 H (0.24-0.36) K/mm3 Eos # (Auto) 0.11 (0.04-0.36) K/mm3 Baso # (Auto) 0.03 (0.01-0.08) K/mm3 Manual Slide Review Abnormal smear Result Diagrams: 09/01/19 07:58 - Problem List (1) 40 weeks gestation of SNOMED Code(s): 43643335 ICD Code: Z3A.40 - 40 WEEKS GESTATION OF Status: Acute Current Visit: Yes Problem List Initiated/Reviewed/Updated: Yes Orders Last 24hrs: Active Orders 24 hr Category Date Time Status Patient Status [ADT] Routine ADT 09/01/19 07:40 Active Activity as Tolerated [RC] PFP Care 09/01/19 07:40 Active Communication Order [RC] ASDIRECTED Care 09/01/19 07:40 Active Heart Tones [RC] ASDIRECTED Care 09/01/19 07:41 Active Notify Provider [RC] ASDIRECTED Care 09/01/19 13:24 Active Notify Provider [RC] PFP Care 09/01/19 07:40 Active Notify Provider [RC] PRN Care 09/01/19 07:40 Active Peripheral IV Care [RC] . DIRECTED Care 09/01/19 07:41 Active Vital Signs [RC] PER UNIT ROUTINE Care 09/01/19 07:40 Active Regular Diet [DIET] Diet 09/01/19 Breakfast Active BLOOD BANK HOLD SPECIMEN [BBK] Routine Lab 09/01/19 07:39 Ordered RAPID PLASMA REAGIN,RPR [CHEM] Routine Lab 09/01/19 07:58 Received Bupivicaine/fentaNYL/NS [fentaNYL/Bupivacaine/NS 2 MCG- Med 09/01/19 13:24 Active 0.125% 250 ML] 2 mcg EPIDUR CONTINUOUS PRN Lactated Ringers [Ringers, Lactated] 1,000 ml Med 09/01/19 07:45 Active IV ASDIRECTED Nalbuphine [Nubain] Med 09/01/19 07:39 Active 10 mg IVPUSH Q2H PRN Ondansetron [Zofran] Med 09/01/19 07:39 Active 4 mg IVPUSH Q4H PRN Oxytocin/Lactated Ringers [Pitocin in LR 10 Units/1,000 Med 09/01/19 07:45 Active ML] 10 unit in 1,000 ml IV .CONTINUOUS Oxytocin/Lactated Ringers [Pitocin in LR 10 Units/1,000 Med 09/01/19 07:45 Active ML] 10 unit in 1,000 ml IV TITRATE Oxytocin/Lactated Ringers [Pitocin in LR 20 Units/1,000 Med 09/01/19 19:45 Active ML] 20 unit in 1,000 ml IV TITRATE Sodium Chloride 0.9% [Saline Flush] Med 09/01/19 07:39 Active 10 ml FLUSH ASDIRECTED PRN diphenhydrAMINE [Benadryl] Med 09/01/19 13:24 Active 25 mg IVPUSH Q6H PRN ePHEDrine [ePHEDrine sulfate] Med 09/01/19 13:24 Active 5 mg IVPUSH ASDIRECTED PRN fentaNYL [Sublimaze] Med 09/01/19 13:24 Active 100 mcg EPIDUR Q3H PRN Electronic Heart Tones Ext w TOCO [WOMSER] Oth 09/01/19 07:40 Ordered Routine Electronic Heart Tones Internal [WOMSER] Per Unit Oth 09/01/19 07:40 Ordered Routine Peripheral IV Insertion Adult [OM.PC] Routine Oth 09/01/19 07:40 Ordered Resuscitation Status Routine Resus Stat 09/01/19 07:39 Ordered Medication Orders Diphenhydramine HCl (Benadryl) 25 mg IVPUSH Q6H PRN PRN Reason: pruritis Ephedrine Sulfate (Ephedrine Sulfate) 5 mg IVPUSH ASDIRECTED PRN PRN Reason: Hypotension Last Admin: 09/01/19 14:18 Dose: 5 mg Fentanyl (Sublimaze) 100 mcg EPIDUR Q3H PRN PRN Reason: Pain Last Admin: 09/01/19 14:17 Dose: 100 mcg Fentanyl/Bupivacaine HCl (Fentanyl/Bupivacaine/Ns 2 Mcg-0.125% 250 Ml) 2 mcg EPIDUR CONTINUOUS PRN PRN Reason: Pain Last Admin: 09/01/19 14:16 Dose: 2 mcg Lactated Ringer's (Ringers, Lactated) 1,000 mls @ 100 mls/hr IV ASDIRECTED HERSON Last Admin: 09/01/19 18:49 Dose: 100 mls/hr Infusion: 09/01/19 18:49 Dose: 100 mls/hr Admin: 09/01/19 14:14 Dose: 100 mls/hr Infusion: 09/01/19 14:14 Dose: 100 mls/hr Admin: 09/01/19 13:31 Dose: 100 mls/hr Infusion: 09/01/19 13:31 Dose: 100 mls/hr Admin: 09/01/19 08:11 Dose: 100 mls/hr Oxytocin/Lactated Ringer's (Pitocin In Lr 10 Units/1,000 Ml) 10 unit in 1,000 mls @ 500 mls/hr IV .CONTINUOUS HERSON Oxytocin/Lactated Ringer's (Pitocin In Lr 10 Units/1,000 Ml) 10 unit in 1,000 mls @ 12 mls/hr IV TITRATE HERSON; Protocol Last Titration: 09/01/19 19:30 Dose: 26 munits/min, 156 mls/hr Titration: 09/01/19 18:50 Dose: 24 munits/min, 144 mls/hr Titration: 09/01/19 18:25 Dose: 22 munits/min, 132 mls/hr Titration: 09/01/19 17:26 Dose: 20 munits/min, 120 mls/hr Titration: 09/01/19 16:56 Dose: 18 munits/min, 108 mls/hr Titration: 09/01/19 16:30 Dose: 16 munits/min, 96 mls/hr Titration: 09/01/19 15:28 Dose: 14 munits/min, 84 mls/hr Titration: 09/01/19 15:02 Dose: 12 munits/min, 72 mls/hr Titration: 09/01/19 10:56 Dose: 10 munits/min, 60 mls/hr Titration: 09/01/19 10:20 Dose: 8 munits/min, 48 mls/hr Titration: 09/01/19 09:52 Dose: 6 munits/min, 36 mls/hr Titration: 09/01/19 09:08 Dose: 4 munits/min, 24 mls/hr Admin: 09/01/19 08:13 Dose: 2 munits/min, 12 mls/hr Oxytocin/Lactated Ringer's (Pitocin In Lr 20 Units/1,000 Ml) 20 unit in 1,000 mls @ 78 mls/hr IV TITRATE HERSON; Protocol Nalbuphine HCl (Nubain) 10 mg IVPUSH Q2H PRN PRN Reason: Pain Last Admin: 09/01/19 12:15 Dose: 10 mg Ondansetron HCl (Zofran) 4 mg IVPUSH Q4H PRN PRN Reason: Nausea/Vomiting Last Admin: 09/01/19 14:27 Dose: 4 mg Sodium Chloride (Saline Flush) 10 ml FLUSH ASDIRECTED PRN PRN Reason: Keep Vein Open Assessment/Plan Comment:: 24 y/o at 40 0/7 wks presents for IOL * Labs * GBS negative, no need for antibiotics * Pitocin and then AROM for IOL * Pain management per patient preference * Anticipate
--- NOTE | 2019-09-01 20:29 | PCM.PNLD ---
Labor Progress Note - VS & Meds Vital Signs: Last Vital Signs Temp 37.3 C 09/01/19 07:32 Pulse 111 H 09/01/19 07:32 Resp 16 09/01/19 07:32 BP 105/73 09/01/19 07:32 Pulse Ox 100 09/01/19 07:32 Active Medications: Current Medications Diphenhydramine HCl (Benadryl) 25 mg IVPUSH Q6H PRN PRN Reason: pruritis Ephedrine Sulfate (Ephedrine Sulfate) 5 mg IVPUSH ASDIRECTED PRN PRN Reason: Hypotension Last Admin: 09/01/19 14:18 Dose: 5 mg Fentanyl (Sublimaze) 100 mcg EPIDUR Q3H PRN PRN Reason: Pain Last Admin: 09/01/19 14:17 Dose: 100 mcg Fentanyl/Bupivacaine HCl (Fentanyl/Bupivacaine/Ns 2 Mcg-0.125% 250 Ml) 2 mcg EPIDUR CONTINUOUS PRN PRN Reason: Pain Last Admin: 09/01/19 14:16 Dose: 2 mcg Lactated Ringer's (Ringers, Lactated) 1,000 mls @ 100 mls/hr IV ASDIRECTED HERSON Last Admin: 09/01/19 18:49 Dose: 100 mls/hr Oxytocin/Lactated Ringer's (Pitocin In Lr 10 Units/1,000 Ml) 10 unit in 1,000 mls @ 500 mls/hr IV .CONTINUOUS HERSON Oxytocin/Lactated Ringer's (Pitocin In Lr 10 Units/1,000 Ml) 10 unit in 1,000 mls @ 12 mls/hr IV TITRATE HERSON; Protocol Last Titration: 09/01/19 19:30 Dose: 26 munits/min, 156 mls/hr Oxytocin/Lactated Ringer's (Pitocin In Lr 20 Units/1,000 Ml) 20 unit in 1,000 mls @ 78 mls/hr IV TITRATE HERSON; Protocol Nalbuphine HCl (Nubain) 10 mg IVPUSH Q2H PRN PRN Reason: Pain Last Admin: 09/01/19 12:15 Dose: 10 mg Ondansetron HCl (Zofran) 4 mg IVPUSH Q4H PRN PRN Reason: Nausea/Vomiting Last Admin: 09/01/19 14:27 Dose: 4 mg Sodium Chloride (Saline Flush) 10 ml FLUSH ASDIRECTED PRN PRN Reason: Keep Vein Open - Uterine Contractions Uterine Monitoring Mode: External [place] Contraction Intensity: Mild to Moderate - Monitoring Monitor Mode: External Ultrasound Heart Rate (FHR) Baseline: 140 Heart Rate (FHR) Variability: Moderate (6-25 bmp) Accelerations: Present, 15x15 Decelerations: None Strip Review: Category I - Vaginal Exam Dilation (cm): 3 Effacement (Percent): 50 Station: -3 Cervical Position: Midposition - Labor Progress (Free Text) Labor Progress: Doing well. On pitocin. Getting more uncomfortable. AROM performed with release of large amount of clear fluid
[2019-09-02] MEDS ORDERED: Misoprostol 200 MCG Tab PO STA (00:08)
--- NOTE | 2019-09-02 00:09 | PCM.DEL ---
L & D Note - General Info Date of Service: 09/01/19 - Delivery Note Labor: Induced by ARM, Induced by Oxytocin Delivery Outcome: Livebirth Infant Delivery Method: Spontaneous Vaginal Delivery-Single Infant Delivery Mode: Spontaneous Presentation: Right Occiput Anterior (JAYME) Nuchal Cord: None Anesthesia Type: Epidural Amniotic Fluid Description: Clear Episiotomy Type: None Laceration: None Placenta: Intact, Spontaneous Cord: 3 Vessels Estimated Blood Loss: 600 Resuscitation Needed: Yes [place]: Bulb Syringe, Stimulated, Warmed, [place] Used, Warmer Used Score 1 min: 8 Score 5 min: 9 Delivery Comments (Free Text/Narrative):: Patient found to be complete and began pushing. With maternal pushing effort head delivered from an JAYME presentation. No nuchal cord present. With gentle downward traction the shoulders and body delivered. Infant placed on maternal abdomen. Cord clamped and cut. Cord blood obtained. Placenta allowed time to separate and expelled intact. Moderate bleeding noted afterwards which was controlled with 600 mcg of buccal cytotec and fundal massage. - General Info Date of Service: 09/01/18 - Patient Data Vitals - Most Recent: Last Vital Signs Temp 37.3 C 09/01/19 07:32 Pulse 111 H 09/01/19 07:32 Resp 16 09/01/19 07:32 BP 105/73 09/01/19 07:32 Pulse Ox 100 09/01/19 07:32 Weight - Most Recent: 108.409 kg I&O - Last 24 Hours: Intake & Output 09/01/19 09/01/19 09/02/19 14:59 22:59 06:59 Intake Total 1060 2120 Balance 1060 2120 Lab Results Last 24 Hours: Laboratory Results - last 24 hr 09/01/19 09/01/19 Range/Units 07:58 07:58 WBC 12.66 H (3.98-10.04) K/mm3 RBC 3.74 L (3.98-5.22) M/mm3 Hgb 11.4 (11.2-15.7) gm/dl Hct 34.9 (34.1-44.9) % MCV 93.3 (79.4-94.8) fl MCH 30.5 (25.6-32.2) pg MCHC 32.7 (32.2-35.5) g/dl RDW Std Deviation 44.0 (36.4-46.3) fL Plt Count 180 L (182-369) K/mm3 MPV 11.2 (9.4-12.3) fl Neut % (Auto) 70.0 (34.0-71.1) % Lymph % (Auto) 18.5 L (19.3-51.7) % [place] % (Auto) 9.2 (4.7-12.5) % Eos % (Auto) 0.9 (0.7-5.8) Baso % (Auto) 0.2 (0.1-1.2) % Neut # (Auto) 8.86 H (1.56-6.13) K/mm3 Lymph # (Auto) 2.34 (1.18-3.74) K/mm3 [place] # (Auto) 1.17 H (0.24-0.36) K/mm3 Eos # (Auto) 0.11 (0.04-0.36) K/mm3 Baso # (Auto) 0.03 (0.01-0.08) K/mm3 Manual Slide Review Abnormal smear RPR Non-reactive (NONREACTIVE) Med Orders - Current: Current Medications Diphenhydramine HCl (Benadryl) 25 mg IVPUSH Q6H PRN PRN Reason: pruritis Ephedrine Sulfate (Ephedrine Sulfate) 5 mg IVPUSH ASDIRECTED PRN PRN Reason: Hypotension Last Admin: 09/01/19 14:18 Dose: 5 mg Fentanyl (Sublimaze) 100 mcg EPIDUR Q3H PRN PRN Reason: Pain Last Admin: 09/01/19 14:17 Dose: 100 mcg Fentanyl/Bupivacaine HCl (Fentanyl/Bupivacaine/Ns 2 Mcg-0.125% 250 Ml) 2 mcg EPIDUR CONTINUOUS PRN PRN Reason: Pain Last Admin: 09/01/19 14:16 Dose: 2 mcg Lactated Ringer's (Ringers, Lactated) 1,000 mls @ 100 mls/hr IV ASDIRECTED HERSON Last Admin: 09/01/19 18:49 Dose: 100 mls/hr Oxytocin/Lactated Ringer's (Pitocin In Lr 10 Units/1,000 Ml) 10 unit in 1,000 mls @ 500 mls/hr IV .CONTINUOUS HERSON Oxytocin/Lactated Ringer's (Pitocin In Lr 10 Units/1,000 Ml) 10 unit in 1,000 mls @ 12 mls/hr IV TITRATE HERSON; Protocol Last Titration: 09/01/19 20:15 Dose: 28 munits/min, 168 mls/hr Oxytocin/Lactated Ringer's (Pitocin In Lr 20 Units/1,000 Ml) 20 unit in 1,000 mls @ 78 mls/hr IV TITRATE HERSON; Protocol Last Admin: 09/01/19 20:43 Dose: 84 mls/hr Misoprostol (Cytotec) 600 mcg PO NOW STA Stop: 09/02/19 00:09 Nalbuphine HCl (Nubain) 10 mg IVPUSH Q2H PRN PRN Reason: Pain Last Admin: 09/01/19 12:15 Dose: 10 mg Ondansetron HCl (Zofran) 4 mg IVPUSH Q4H PRN PRN Reason: Nausea/Vomiting Last Admin: 09/01/19 14:27 Dose: 4 mg Sodium Chloride (Saline Flush) 10 ml FLUSH ASDIRECTED PRN PRN Reason: Keep Vein Open - Problem List & Annotations (1) 40 weeks gestation of SNOMED Code(s): 49584432 Code(s): Z3A.40 - 40 WEEKS GESTATION OF Status: Acute Current Visit: Yes (2) Vaginal delivery SNOMED Code(s): 594811865 Code(s): O80 - ENCOUNTER FOR FULL-TERM UNCOMPLICATED DELIVERY Status: Acute Current Visit: Yes (3) hemorrhage SNOMED Code(s): 51890542 Code(s): O72.1 - OTHER IMMEDIATE HEMORRHAGE Status: Acute Current Visit: Yes Qualifiers: hemorrhage type: other immediate Qualified Code(s): O72.1 - Other immediate hemorrhage - Problem List Review Problem List Initiated/Reviewed/Updated: Yes - My Orders Last 24 Hours: My Active Orders 09/01/19 07:39 BLOOD BANK HOLD SPECIMEN [BBK] Routine Nalbuphine [Nubain] 10 mg IVPUSH Q2H PRN Ondansetron [Zofran] 4 mg IVPUSH Q4H PRN Sodium Chloride 0.9% [Saline Flush] 10 ml FLUSH ASDIRECTED PRN Resuscitation Status Routine 09/01/19 07:40 Patient Status [ADT] Routine Activity as Tolerated [RC] PFP Communication Order [RC] ASDIRECTED Notify Provider [RC] PFP Notify Provider [RC] PRN Vital Signs [RC] PER UNIT ROUTINE Electronic Heart Tones Ext w TOCO [WOMSER] Routine Electronic Heart Tones Internal [WOMSER] Per Unit Routine Peripheral IV Insertion Adult [OM.PC] Routine 09/01/19 07:41 Heart Tones [RC] ASDIRECTED Peripheral IV Care [RC] . DIRECTED 09/01/19 07:45 Lactated Ringers [Ringers, Lactated] 1,000 ml IV ASDIRECTED Oxytocin/Lactated Ringers [Pitocin in LR 10 Units/1,000 ML] 10 unit in 1,000 ml IV .CONTINUOUS Oxytocin/Lactated Ringers [Pitocin in LR 10 Units/1,000 ML] 10 unit in 1,000 ml IV TITRATE 09/01/19 19:45 Oxytocin/Lactated Ringers [Pitocin in LR 20 Units/1,000 ML] 20 unit in 1,000 ml IV TITRATE 09/01/19 Breakfast Regular Diet [DIET] 09/02/19 00:08 miSOPROStol [Cytotec] 600 mcg PO NOW STA - Assessment Assessment:: 24 y/o G4 now P3013 PPD#0 from at 40 0/7 wks - Plan Plan:: * Routine cares * Encourage breast feeding * Discharge home in 2 days
[2019-09-02] MEDS ORDERED: Docusate Sodium 100 MG Cap PO PRN (00:19)
[2019-09-02] MEDS ORDERED: Witch Hazel Medicated Pads 40/Jar TOP PRN (00:19)
[2019-09-02] MEDS ORDERED: Acetaminophen 325 MG Tab PO PRN (00:19)
[2019-09-02] MEDS ORDERED: Benzocaine/Menthol 20%-0.5% Spray 56 GM Canister TOP PRN (00:19)
[2019-09-02] MEDS: Ibuprofen 600 MG Tab PO PRN ×4 (00:51→22:28)
--- NOTE | 2019-09-02 07:39 | PCM48HPAN ---
Post Anesthesia Note - EVALUATION WITHIN 48HRS OF ANESTHETIC Vital Signs in Normal Range: Yes Patient Participated in Evaluation: Yes Respiratory Function Stable: Yes Airway Patent: Yes Cardiovascular Function Stable: Yes Hydration Status Stable: Yes Pain Control Satisfactory: Yes Nausea and Vomiting Control Satisfactory: Yes Mental Status Recovered: Yes Vital Signs: Last Vital Signs Temp 36.7 C 09/02/19 02:38 Pulse 69 09/02/19 02:38 Resp 14 09/02/19 02:38 BP 133/74 09/02/19 02:38 Pulse Ox 99 09/02/19 02:38
--- NOTE | 2019-09-02 08:48 | PCM.PNPP ---
- General Info Date of Service: 09/02/19 Functional Status: Reports: Pain Controlled, Tolerating Diet, Ambulating, Urinating - Review of Systems General: Reports: No Symptoms Pulmonary: Reports: No Symptoms Cardiovascular: Reports: No Symptoms Gastrointestinal: Reports: No Symptoms Genitourinary: Reports: No Symptoms Musculoskeletal: Reports: No Symptoms Neurological: Reports: No Symptoms - Patient Data Vital Signs - Most Recent: Last Vital Signs Temp 36.7 C 09/02/19 02:38 Pulse 69 09/02/19 02:38 Resp 14 09/02/19 02:38 BP 133/74 09/02/19 02:38 Pulse Ox 99 09/02/19 02:38 Weight - Most Recent: 108.409 kg I&O - Last 24 Hours: Intake & Output 09/01/19 09/02/19 09/02/19 22:59 06:59 14:59 Intake Total 2120 4000 Output Total 1100 Balance 2120 2900 Lab Results - Last 24 Hours: Laboratory Results - last 24 hr 09/01/19 Range/Units 07:58 RPR Non-reactive (NONREACTIVE) Med Orders - Current: Current Medications Acetaminophen (Tylenol) 650 mg PO Q4H PRN PRN Reason: mild pain or fever Benzocaine/Menthol (Dermoplast Pain Relief [place]) 0 gm TOP ASDIRECTED PRN PRN Reason: Perineal Comfort Measure Last Admin: 09/02/19 00:51 Dose: 1 canister Docusate Sodium (Colace) 100 mg PO BID PRN PRN Reason: Constipation Ibuprofen (Motrin) 600 mg PO Q6H PRN PRN Reason: Mild pain or fever Last Admin: 09/02/19 00:51 Dose: 600 mg Witch Maria C (Tucks) 1 pad TOP ASDIRECTED PRN PRN Reason: Perineal Comfort Measure Last Admin: 09/02/19 00:51 Dose: 1 tub Discontinued Medications Diphenhydramine HCl (Benadryl) 25 mg IVPUSH Q6H PRN PRN Reason: pruritis Ephedrine Sulfate (Ephedrine Sulfate) 5 mg IVPUSH ASDIRECTED PRN PRN Reason: Hypotension Last Admin: 09/01/19 14:18 Dose: 5 mg Fentanyl (Sublimaze) 100 mcg EPIDUR Q3H PRN PRN Reason: Pain Last Admin: 09/01/19 14:17 Dose: 100 mcg Fentanyl/Bupivacaine HCl (Fentanyl/Bupivacaine/Ns 2 Mcg-0.125% 250 Ml) 2 mcg EPIDUR CONTINUOUS PRN PRN Reason: Pain Last Admin: 09/01/19 14:16 Dose: 2 mcg Lactated Ringer's (Ringers, Lactated) 1,000 mls @ 100 mls/hr IV ASDIRECTED HERSON Last Admin: 09/01/19 18:49 Dose: 100 mls/hr Oxytocin/Lactated Ringer's (Pitocin In Lr 10 Units/1,000 Ml) 10 unit in 1,000 mls @ 500 mls/hr IV .CONTINUOUS HERSON Oxytocin/Lactated Ringer's (Pitocin In Lr 10 Units/1,000 Ml) 10 unit in 1,000 mls @ 12 mls/hr IV TITRATE HERSON; Protocol Last Titration: 09/01/19 20:15 Dose: 28 munits/min, 168 mls/hr Oxytocin/Lactated Ringer's (Pitocin In Lr 20 Units/1,000 Ml) 20 unit in 1,000 mls @ 78 mls/hr IV TITRATE HERSON; Protocol Last Admin: 09/01/19 20:43 Dose: 84 mls/hr Misoprostol (Cytotec) 600 mcg PO NOW STA Stop: 09/02/19 00:09 Last Admin: 09/01/19 23:41 Dose: 600 mcg Nalbuphine HCl (Nubain) 10 mg IVPUSH Q2H PRN PRN Reason: Pain Last Admin: 09/01/19 12:15 Dose: 10 mg Ondansetron HCl (Zofran) 4 mg IVPUSH Q4H PRN PRN Reason: Nausea/Vomiting Last Admin: 09/01/19 14:27 Dose: 4 mg Sodium Chloride (Saline Flush) 10 ml FLUSH ASDIRECTED PRN PRN Reason: Keep Vein Open - Interaction Infant Disposition, : Maurice in Room with Family Interaction: Holding Feeding: Breastfed Infant; Nursed Well Support Person: Significant Other - Recovery Exam Fundal Tone: Firm Fundal Level: 1 Fingerbreadths Below Umbilicus Fundal Placement: Midline Lochia Amount: Small Lochia Color: Rubra/Red Perineum Description: Intact, Minimal Bruising/Swelling Episiotomy/Laceration: None Bladder Status: Voiding Urinary Elimination: Voided - Exam General: Alert, Oriented, Cooperative GI/Abdominal Exam: Soft, Non-Tender Extremities: Normal Inspection Skin: Warm, Dry, Intact - Problem List & Annotations (1) 40 weeks gestation of SNOMED Code(s): 73650306 Code(s): Z3A.40 - 40 WEEKS GESTATION OF Status: Acute Current Visit: Yes (2) Vaginal delivery SNOMED Code(s): 102057027 Code(s): O80 - ENCOUNTER FOR FULL-TERM UNCOMPLICATED DELIVERY Status: Acute Current Visit: Yes (3) hemorrhage SNOMED Code(s): 75597395 Code(s): O72.1 - OTHER IMMEDIATE HEMORRHAGE Status: Acute Current Visit: Yes Qualifiers: hemorrhage type: other immediate Qualified Code(s): O72.1 - Other immediate hemorrhage - Problem List Review Problem List Initiated/Reviewed/Updated: Yes - My Orders Last 24 Hours: My Active Orders 09/02/19 00:19 Activity as Tolerated [RC] PER UNIT ROUTINE Vital Signs [RC] 03,09,15,21 Acetaminophen [Tylenol] 650 mg PO Q4H PRN Benzocaine/Menthol [Dermoplast Pain Relief [place]] See Dose Instructions TOP ASDIRECTED PRN Docusate Sodium [Colace] 100 mg PO BID PRN Ibuprofen [Motrin] 600 mg PO Q6H PRN Witch Maria C [Tucks] 1 pad TOP ASDIRECTED PRN Assess Lochia [WOMSER] Per Unit Routine Assess Uterine Involution [WOMSER] Per Unit Routine Breast Pump [WOMSER] Per Unit Routine Heat Therapy [OM.PC] PRN Ice Therapy [OM.PC] Per Unit Routine Perineal Care [OM.PC] Per Unit Routine Peripheral IV Discontinue [OM.PC] Routine Sitz Bath [OM.PC] Per Unit Routine 09/02/19 Breakfast Regular Diet [DIET] 09/03/19 00:19 Heat Therapy [OM.PC] PRN - Assessment Assessment:: 24 y/o G4 now P3013 PPD#1 from at 40 0/7 wks - Plan Plan:: * Routine cares * Encourage breast feeding * Discharge home tomorrow
--- NOTE | 2019-09-03 04:02 | PCM.DCSUM1 ---
Discharge Summary - Discharge Data Discharge Date: 09/03/19 Discharge Disposition: Home, Self-Care 01 Condition: Good - Referral to Home Health Primary Care Physician: Iman Montes MD - Discharge Diagnosis/Problem(s) (1) 40 weeks gestation of SNOMED Code(s): 14937827 ICD Code: Z3A.40 - 40 WEEKS GESTATION OF Status: Acute Current Visit: Yes (2) Vaginal delivery SNOMED Code(s): 942610045 ICD Code: O80 - ENCOUNTER FOR FULL-TERM UNCOMPLICATED DELIVERY Status: Acute Current Visit: Yes (3) hemorrhage SNOMED Code(s): 88506850 ICD Code: O72.1 - OTHER IMMEDIATE HEMORRHAGE Status: Acute Current Visit: Yes Qualifiers: hemorrhage type: other immediate Qualified Code(s): O72.1 - Other immediate hemorrhage - Patient Summary/Data Complications: None Consults: None Recommended Follow-up Testing/Procedures: Follow up in 3 weeks for check Hospital Course: 24 y/o at 40 0/7 wks who presented for IOL. This was done with pitocin and AROM. She progressed slowly but well to complete dilation. She underwent an uncomplicated . See delivery note. she did well and was discharged home on PPD#2 - Patient Instructions Diet: Regular Diet as Tolerated Activity: As Tolerated Activity, Other: Pelvic rest for 6 weeks Driving: May Drive Today Showering/Bathing: May Shower Showering/Bathing, Other: May bathe Notify Provider of: Fever, Increased Pain, Swelling and Redness, Drainage, Nausea and/or Vomiting - Discharge Plan *PRESCRIPTION DRUG MONITORING PROGRAM REVIEWED*: Not Applicable *COPY OF PRESCRIPTION DRUG MONITORING REPORT IN PATIENT CAROLIN: Not Applicable Home Medications: Home Meds PNV95/Ferrous Fumarate/FA [ Tablet] 1 tab PO DAILY 08/20/19 [History] Docusate Sodium [Colace] 100 mg PO BID PRN cap 09/02/19 [Rx] Ibuprofen [Motrin] 600 mg PO Q6H PRN tablet 09/02/19 [Rx] Referrals: Iman Montes MD [Primary Care Provider] - (3 weeks for check ) - Discharge Summary/Plan Comment DC Time >30 min.: No - Patient Data Vitals - Most Recent: Last Vital Signs Temp 36.9 C 09/02/19 20:35 Pulse 73 09/02/19 20:35 Resp 14 09/02/19 20:35 BP 110/62 09/02/19 20:35 Pulse Ox 98 09/02/19 20:35 Weight - Most Recent: 108.409 kg I&O - Last 24 hours: Intake & Output 09/02/19 09/02/19 09/03/19 14:59 22:59 06:59 Intake Total 180 360 Balance 180 360 Med Orders - Current: Current Medications Acetaminophen (Tylenol) 650 mg PO Q4H PRN PRN Reason: mild pain or fever Last Admin: 09/02/19 20:30 Dose: 650 mg Benzocaine/Menthol (Dermoplast Pain Relief [place]) 0 gm TOP ASDIRECTED PRN PRN Reason: Perineal Comfort Measure Last Admin: 09/02/19 00:51 Dose: 1 canister Docusate Sodium (Colace) 100 mg PO BID PRN PRN Reason: Constipation Ibuprofen (Motrin) 600 mg PO Q6H PRN PRN Reason: Mild pain or fever Last Admin: 09/02/19 22:28 Dose: 600 mg Witch Maria C (Tucks) 1 pad TOP ASDIRECTED PRN PRN Reason: Perineal Comfort Measure Last Admin: 09/02/19 00:51 Dose: 1 tub Discontinued Medications Bupivacaine HCl (Sensorcaine-Mpf 0.25%) 10 ml .ROUTE .STK-MED ONE Stop: 09/01/19 00:01 Diphenhydramine HCl (Benadryl) 25 mg IVPUSH Q6H PRN PRN Reason: pruritis Ephedrine Sulfate (Ephedrine Sulfate) 5 mg IVPUSH ASDIRECTED PRN PRN Reason: Hypotension Last Admin: 09/01/19 14:18 Dose: 5 mg Ephedrine Sulfate (Ephedrine In Ns) 25 mg .ROUTE .STK-MED ONE Stop: 09/01/19 00:01 Fentanyl (Sublimaze) 100 mcg EPIDUR Q3H PRN PRN Reason: Pain Last Admin: 09/01/19 14:17 Dose: 100 mcg Fentanyl/Bupivacaine HCl (Fentanyl/Bupivacaine/Ns 2 Mcg-0.125% 250 Ml) 2 mcg EPIDUR CONTINUOUS PRN PRN Reason: Pain Last Admin: 09/01/19 14:16 Dose: 2 mcg Lactated Ringer's (Ringers, Lactated) 1,000 mls @ 100 mls/hr IV ASDIRECTED HERSON Last Admin: 09/01/19 18:49 Dose: 100 mls/hr Oxytocin/Lactated Ringer's (Pitocin In Lr 10 Units/1,000 Ml) 10 unit in 1,000 mls @ 500 mls/hr IV .CONTINUOUS HERSON Oxytocin/Lactated Ringer's (Pitocin In Lr 10 Units/1,000 Ml) 10 unit in 1,000 mls @ 12 mls/hr IV TITRATE HERSON; Protocol Last Titration: 09/01/19 20:15 Dose: 28 munits/min, 168 mls/hr Oxytocin/Lactated Ringer's (Pitocin In Lr 20 Units/1,000 Ml) 20 unit in 1,000 mls @ 78 mls/hr IV TITRATE HERSON; Protocol Last Admin: 09/01/19 20:43 Dose: 84 mls/hr Misoprostol (Cytotec) 600 mcg PO NOW STA Stop: 09/02/19 00:09 Last Admin: 09/01/19 23:41 Dose: 600 mcg Nalbuphine HCl (Nubain) 10 mg IVPUSH Q2H PRN PRN Reason: Pain Last Admin: 09/01/19 12:15 Dose: 10 mg Ondansetron HCl (Zofran) 4 mg IVPUSH Q4H PRN PRN Reason: Nausea/Vomiting Last Admin: 09/01/19 14:27 Dose: 4 mg Sodium Chloride (Saline Flush) 10 ml FLUSH ASDIRECTED PRN PRN Reason: Keep Vein Open
--- NOTE | 2019-09-03 04:02 | PCM.PNPP ---
- General Info Date of Service: 09/03/19 Functional Status: Reports: Pain Controlled, Tolerating Diet, Ambulating, Urinating - Review of Systems General: Reports: No Symptoms Pulmonary: Reports: No Symptoms Cardiovascular: Reports: No Symptoms Gastrointestinal: Reports: No Symptoms Genitourinary: Reports: No Symptoms Musculoskeletal: Reports: No Symptoms Neurological: Reports: No Symptoms - Patient Data Vital Signs - Most Recent: Last Vital Signs Temp 36.9 C 09/02/19 20:35 Pulse 73 09/02/19 20:35 Resp 14 09/02/19 20:35 BP 110/62 09/02/19 20:35 Pulse Ox 98 09/02/19 20:35 Weight - Most Recent: 108.409 kg I&O - Last 24 Hours: Intake & Output 09/02/19 09/02/19 09/03/19 14:59 22:59 06:59 Intake Total 180 360 Balance 180 360 Med Orders - Current: Current Medications Acetaminophen (Tylenol) 650 mg PO Q4H PRN PRN Reason: mild pain or fever Last Admin: 09/02/19 20:30 Dose: 650 mg Benzocaine/Menthol (Dermoplast Pain Relief [place]) 0 gm TOP ASDIRECTED PRN PRN Reason: Perineal Comfort Measure Last Admin: 09/02/19 00:51 Dose: 1 canister Docusate Sodium (Colace) 100 mg PO BID PRN PRN Reason: Constipation Ibuprofen (Motrin) 600 mg PO Q6H PRN PRN Reason: Mild pain or fever Last Admin: 09/02/19 22:28 Dose: 600 mg Witch Maria C (Tucks) 1 pad TOP ASDIRECTED PRN PRN Reason: Perineal Comfort Measure Last Admin: 09/02/19 00:51 Dose: 1 tub Discontinued Medications Bupivacaine HCl (Sensorcaine-Mpf 0.25%) 10 ml .ROUTE .STK-MED ONE Stop: 09/01/19 00:01 Diphenhydramine HCl (Benadryl) 25 mg IVPUSH Q6H PRN PRN Reason: pruritis Ephedrine Sulfate (Ephedrine Sulfate) 5 mg IVPUSH ASDIRECTED PRN PRN Reason: Hypotension Last Admin: 09/01/19 14:18 Dose: 5 mg Ephedrine Sulfate (Ephedrine In Ns) 25 mg .ROUTE .STK-MED ONE Stop: 09/01/19 00:01 Fentanyl (Sublimaze) 100 mcg EPIDUR Q3H PRN PRN Reason: Pain Last Admin: 09/01/19 14:17 Dose: 100 mcg Fentanyl/Bupivacaine HCl (Fentanyl/Bupivacaine/Ns 2 Mcg-0.125% 250 Ml) 2 mcg EPIDUR CONTINUOUS PRN PRN Reason: Pain Last Admin: 09/01/19 14:16 Dose: 2 mcg Lactated Ringer's (Ringers, Lactated) 1,000 mls @ 100 mls/hr IV ASDIRECTED HERSON Last Admin: 09/01/19 18:49 Dose: 100 mls/hr Oxytocin/Lactated Ringer's (Pitocin In Lr 10 Units/1,000 Ml) 10 unit in 1,000 mls @ 500 mls/hr IV .CONTINUOUS HERSON Oxytocin/Lactated Ringer's (Pitocin In Lr 10 Units/1,000 Ml) 10 unit in 1,000 mls @ 12 mls/hr IV TITRATE HERSON; Protocol Last Titration: 09/01/19 20:15 Dose: 28 munits/min, 168 mls/hr Oxytocin/Lactated Ringer's (Pitocin In Lr 20 Units/1,000 Ml) 20 unit in 1,000 mls @ 78 mls/hr IV TITRATE HERSON; Protocol Last Admin: 09/01/19 20:43 Dose: 84 mls/hr Misoprostol (Cytotec) 600 mcg PO NOW STA Stop: 09/02/19 00:09 Last Admin: 09/01/19 23:41 Dose: 600 mcg Nalbuphine HCl (Nubain) 10 mg IVPUSH Q2H PRN PRN Reason: Pain Last Admin: 09/01/19 12:15 Dose: 10 mg Ondansetron HCl (Zofran) 4 mg IVPUSH Q4H PRN PRN Reason: Nausea/Vomiting Last Admin: 09/01/19 14:27 Dose: 4 mg Sodium Chloride (Saline Flush) 10 ml FLUSH ASDIRECTED PRN PRN Reason: Keep Vein Open - Infant Interaction Disposition, : [place] in Room with Family Interaction: Holding Infant Feeding: Breastfed ; Nursed Well Support Person: Significant Other - Recovery Exam Fundal Tone: Firm Fundal Level: 1 Fingerbreadths Below Umbilicus Fundal Placement: Midline Lochia Amount: Small Lochia Color: Rubra/Red Perineum Description: Intact, Minimal Bruising/Swelling Episiotomy/Laceration: None Bladder Status: Voiding Urinary Elimination: Voided - Exam General: Alert, Oriented, Cooperative GI/Abdominal Exam: Soft, Non-Tender Extremities: Normal Inspection Skin: Warm, Dry, Intact - Problem List & Annotations (1) 40 weeks gestation of SNOMED Code(s): 24486391 Code(s): Z3A.40 - 40 WEEKS GESTATION OF Status: Acute Current Visit: Yes (2) Vaginal delivery SNOMED Code(s): 736267178 Code(s): O80 - ENCOUNTER FOR FULL-TERM UNCOMPLICATED DELIVERY Status: Acute Current Visit: Yes (3) hemorrhage SNOMED Code(s): 24381433 Code(s): O72.1 - OTHER IMMEDIATE HEMORRHAGE Status: Acute Current Visit: Yes Qualifiers: hemorrhage type: other immediate Qualified Code(s): O72.1 - Other immediate hemorrhage - Problem List Review Problem List Initiated/Reviewed/Updated: Yes - My Orders Last 24 Hours: My Active Orders 09/02/19 Breakfast Regular Diet [DIET] 09/03/19 00:19 Heat Therapy [OM.PC] PRN 09/03/19 04:01 Ready for Discharge [RC] PER UNIT ROUTINE - Assessment Assessment:: 24 y/o G4 now [id number] PPD#2 from at 40 0/7 wks - Plan Plan:: * Routine cares * Encourage breast feeding * Discharge home today
[2019-09-03 15:54] VITALS: BP 114/61; PULSE 64
== END 2019-09-03 13:00 | disposition home or self-care (01) | DRG 806 ==
LOC: JD.OB 07:13 → OBSVTOIN 23:32 → JD.OB 23:33
PROVIDERS: ADMIT Obstetrics & Gynecology; ATTEND Obstetrics & Gynecology
PROC: 10E0XZZ Delivery of Products of Conception, External Approach (ICD-10-PCS; principal; 2019-09-01)
PROC: 10907ZC Drainage of Amniotic Fluid, Therapeutic from Products of Conception, Via Natural or Artificial Opening (ICD-10-PCS; 2019-09-01)
PROC: 3E033VJ Introduction of Other Hormone into Peripheral Vein, Percutaneous Approach (ICD-10-PCS; 2019-09-01)
PROC: 3E0R3BZ Introduction of Anesthetic Agent into Spinal Canal, Percutaneous Approach (ICD-10-PCS; 2019-09-01)
DX: O48.0 Post-term pregnancy (principal); O72.1 Other immediate postpartum hemorrhage; Z37.0 Single live birth; Z3A.40 40 weeks gestation of pregnancy; Z88.1 Allergy status to other antibiotic agents; Z90.89 Acquired absence of other organs; Z87.891 Personal history of nicotine dependence
CPT/HCPCS: 36415; 51701; 59025; 59409; 85025; 86592; A9270-GY; J2300; J2405; J2590; J3010; J3490; J7050; J7120